=== PATIENT | male | born 1995 | race Caucasian/White ===

== ENCOUNTER 2018-06-06 00:47 | Emergency (ER) | payer BC ==
[~2018-06-06] VITALS: Ht 177.8 cm; Wt 72.0 kg
--- NOTE | 2018-06-06 01:08 | NUR ---
Dr. Morgan at bedside to evaluate pt.
--- NOTE | 2018-06-06 01:19 | NUR ---
Pt ambulated to imaging, with tech.
--- NOTE | 2018-06-06 01:21 | NUR ---
Pt back to room from imaging.
--- NOTE | 2018-06-06 02:07 | NUR ---
Dr. Morgan at bedside to discuss ED findings and d/c instructions.
[2018-06-06 02:29] VITALS: BP 118/64
== END 2018-06-06 02:31 | disposition home or self-care (01) ==
LOC: ED 02:24
DX: R07.89 Other chest pain (principal)
CPT/HCPCS: 71046; 93005; 99283

== ENCOUNTER 2018-10-30 23:26 | Emergency (ER) | payer BC ==
[~2018-10-30] VITALS: Ht 177.8 cm; Wt 73.6 kg
[2018-10-31] MEDS ORDERED: CALC215T2 PO (00:07)
[2018-10-31 00:08] VITALS: BP 120/77
--- NOTE | 2018-10-31 00:09 | NUR ---
PT HERE FOR NAUSEA X 45 MIN AND MILD ABD PAIN. PT DENIES FEVER. UNKNOWN IF EXPOSED TO ANYONE ILL. PT ALSO COMPLAINING OF CHEST PAIN TODAY. PAIN IS ACROSS CHEST AND MAKES NAUSEA WORSE. MONITORS APPLIED, SIDERAILS UP X2, C ALL LIGHT WITHIN REACH
== END 2018-10-31 00:45 | disposition home or self-care (01) ==
LOC: ED 10-31 00:01
DX: R07.2 Precordial pain (principal); R11.0 Nausea
CPT/HCPCS: 93005; 99283